=== PATIENT | male | born 1965 | race Caucasian/White ===

== ENCOUNTER 2018-10-18 23:04 | Emergency (ER) | payer BC ==
[~2018-10-18] VITALS: Ht 165.1 cm; Wt 65.9 kg
[~2018-10-18 23:04] MED LIST: ALEN70TA5 PO; FURO20TA3 PO; NADO40TA31 PO; RIFA550T4 PO; URSO250T10 PO
[2018-10-18 23:10] VITALS: Ht 165.1 cm; Wt 65.9 kg
--- NOTE | 2018-10-18 23:11 | ERD ---
ER Documentation Chief Complaint Chief Complaint Altered level consciousness HPI The patient is a 53-year-old male, presenting to the ER from home because of altered level consciousness for 20 minutes according to EMS. Accu-Chek was 177. 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 Past medical history: Cirrhosis, on liver transplant at [facility]. He has minimal bleeding in the nostril, according to EMS it is normal for him per family Past medical history: Cirrhosis on liver transplant at [facility] Past surgical history: Variceal bleeding banded ROS All systems reviewed and are negative except as per history of present illness. Medications Home Meds Reported Medications Ergocalciferol (Vitamin D2) (VITAMIN D2) 50,000 Unit Capsule, 83875 UNIT Q7D for QSUNDAY TAKE 1 CAPSULE (50,000 UNITS TOTAL) BY MOUTH EVERY SEVEN (7) DAYS 10/19/18 Hydroxyzine Hcl* (Atarax*) 25 Mg Tab, 25 MG PO QHS TAKE 1 TABLET BY MOUTH AT BEDTIME NEEDED 10/19/18 Amiloride Hcl* (Midamor*) 5 Mg Tab, 20 MG PO DAILY TAKE 4 TABLETS (20 MG TOTAL) BY MOUTH DAILY 10/19/18 Eszopiclone (Eszopiclone) 2 Mg Tablet, 2 MG PO QHS for 30 Days, #30 10/19/18 Rifampin* (Rifampin*) 150 Mg Capsule, 150 MG PO DAILY for 30 Days, #30 10/19/18 Pantoprazole* (Pantoprazole*) 40 Mg Tablet.dr, 40 MG PO DAILY for 30 Days, #30 10/19/18 Potassium Chloride* (K-Dur*) 20 Meq Tab.prt.sr, 20 MEQ PO DAILY for 30 Days, #30 10/19/18 Folic Acid* (Folic Acid*) 1 Mg Tablet, 1 MG PO DAILY for 30 Days, #30 10/19/18 Nadolol (Nadolol) 20 Mg Tablet, 20 MG PO DAILY, TAB 10/19/18 Furosemide* (Furosemide*) 40 Mg Tablet, 80 MG PO BID, TAB 10/19/18 Nadolol* (Corgard*) 40 Mg Tab, 40 MG PO BID, #30 TAB 07/04/18 Ursodiol* (Ursodiol*) 250 Mg Tablet, 500 MG PO BID, TAB 07/04/18 Alendronate Sodium* (Fosamax*) 70 Mg Tablet, 70 MG PO Q7D for QSUNDAY, #4 TAB 07/04/18 Rifaximin* (Xifaxan*) 550 Mg Tablet, 550 MG PO BID, TAB 07/04/18 Discontinued Reported Medications Furosemide* (Furosemide*) 20 Mg Tablet, 20 MG PO DAILY, #60 TAB 07/04/18 Allergies Allergies: Coded Allergies: No Known Allergy (Unverified , 07/09/15) PMhx/Soc History of Surgery: Yes (appendecitis) Anesthesia Reaction: No Hx Neurological Disorder: No Hx Respiratory Disorders: No Hx Cardiac Disorders: No Hx Psychiatric Problems: No Hx Miscellaneous Medical Probl: No Hx Alcohol Use: Yes Hx Substance Use: No Hx Tobacco Use: Yes Physical Exam Vitals Vital Signs Date Temp Pulse Resp B/P (MAP) Pulse Ox O2 O2 Flow FiO2 Time Delivery Rate 10/19/18 107 16 119/68 99 Room Air 01:00 (85) 10/19/18 110 24 122/73 99 Room Air 00:22 (89) 10/18/18 99.1 118 26 134/77 100 23:10 (96) Physical Exam Const: No acute distress. Head: Atraumatic. Eyes: Normal Conjunctiva. ENT: Normal External Ears, Nose and Mouth. Neck: Full range of motion. No meningismus. Resp: Clear to auscultation bilaterally. Cardio: Regular rate and rhythm. Abd: Soft, non distended, normal bowel sounds, non tender. Skin: No petechiae or rashes. Back: No midline or flank tenderness. Ext: No cyanosis, or edema. Neur: Awake. Limited exam Psych: Unable to perform due to his condition Result Diagram: 10/18/18230610/18/182306 Results 24 hrs Laboratory Tests Test 10/18/18 23:07 10/18/18 23:15 10/18/18 23:26 White Blood Count 5.5 10^3/ul Red Blood Count 2.38 10^6/ul Hemoglobin 8.1 g/dl Hematocrit 23.1 % Mean Corpuscular Volume 97.1 fl Mean Corpuscular Hemoglobin 34.0 pg Mean Corpuscular 35.1 g/dl Hemoglobin Concent Red Cell Distribution Width 13.6 % Platelet Count 93 10^3/UL Mean Platelet Volume 10.3 fl Immature Granulocytes % 0.700 % Neutrophils % 60.3 % Lymphocytes % 21.7 % Monocytes % 14.2 % Eosinophils % 2.6 % Basophils % 0.5 % Nucleated Red Blood Cells % 0.0 /100WBC Immature Granulocytes # 0.040 10^3/ul Neutrophils # 3.3 10^3/ul Lymphocytes # 1.2 10^3/ul Monocytes # 0.8 10^3/ul Eosinophils # 0.1 10^3/ul Basophils # 0.0 10^3/ul Nucleated Red Blood Cells # 0.0 10^3/ul Prothrombin Time 35.6 Sec Prothrombin Time Ratio 2.8 INR International Normalized Ratio 3.56 Activated Partial Thromboplast 55.9 Sec Time Sodium Level 132 mmol/L Potassium Level 3.0 mmol/L Chloride Level 94 mmol/L Carbon Dioxide Level 27 mmol/L Anion Gap 11 Blood Urea Nitrogen 13 mg/dl Creatinine 1.00 mg/dl Est Glomerular Filtrat Rate mL/min > 60 mL/min Glucose Level 193 mg/dl Calcium Level 7.7 mg/dl Total Bilirubin 5.3 mg/dl Direct Bilirubin 1.20 mg/dl Indirect Bilirubin 4.1 mg/dl Aspartate Amino Transf (AST/SGOT) 66 IU/L Alanine 22 IU/L Aminotransferase (ALT/SGPT) Alkaline Phosphatase 290 IU/L Ammonia 53 umol/l Troponin I < 0.012 ng/ml Total Protein 8.3 g/dl Albumin 3.1 g/dl Globulin 5.20 g/dl Albumin/Globulin Ratio 0.59 Ethyl Alcohol Level < 10.0 mg/dl POC Venous Lactate 3.0 mmol/L Bedside Glucose 224 mg/dL Current Medications Medications Dose Sig/Narinder Start Time Status Last (Trade) Ordered Route PRN Stop Time Admin Dose Reason Admin Sodium 1,980 ml BOLUS OVER 2 10/18/18 DC 10/18/18 Chloride HOURS STAT 23:16 23:27 (NS) IV* 10/18/18 23:19 Piperacillin 100 ml @ ONCE ONCE 10/18/18 DC 10/18/18 Sod/ 200 mls/hr IVPB 23:30 23:26 Tazobactam 10/18/18 23:59 Sod Ondansetron 4 mg ONCE STAT 10/18/18 DC 10/18/18 HCl (Zofran IV 23:22 23:35 Inj) 10/18/18 23:23 Procedures/MDM MEDICAL MAKING DECISION: The patient and family later arrived and wanted to take the patient to [facility] by himself and did not want to wait for the chest x-ray/C T/labs to be back. He left AGAINST MEDICAL ADVICE before the studies were available. I explained to them that the patient may have have intracranial bleeding, esophageal varices bleeding, upper gastrointestinal bleeding, hepatic encephalopathy and will need immediate treatment. They are aware that he may on the way to [facility] None of the abnormality of the labs were addressed because the patient left prior to the availability of the labs The patient signed out AGAINST MEDICAL ADVICE. Risks, benefits, alternatives were explained to the patient. Risks include but not limited to and p ermanent disability Disclaimer: Inadvertent spelling and grammatical errors are likely due to EHR/d ictation software use and do not reflect on the overall quality of patient care. Also, please note that the electronic time recorded on this note does not necessarily reflect the actual time of the patient encounter. Departure Diagnosis: Primary Impression: Altered level of consciousness Condition: Critical Comments The patient signed out AGAINST MEDICAL ADVICE. Risks, benefits, alternatives we re explained to the patient. Risks include but not limited to and permanent disability Disclaimer: Inadvertent spelling and grammatical errors are likely due to EHR/dictation software use and do not reflect on the overall quality of patient care. Also, please note that the electronic time recorded on this note does not necessarily reflect the actual time of the patient encounter. ILYA MELCHOR MD October 18, 2018 23:11
[2018-10-18] MEDS ORDERED: SODIUM CHLORIDE 0.9% 1L BAG IV* STA (23:16)
[2018-10-18] MEDS ORDERED: ONDANSETRON 4 MG INJ IV STA (23:22)
[2018-10-18] MEDS ORDERED: PIPER-TAZO 3.375 GM IV (PMX) 100 ML IVPB ONE (23:30)
[2018-10-19 01:00] VITALS: BP 119/68; PULSE 107; RESP 16
[2018-10-19] MEDS ORDERED: NADO20TA PO (02:22)
[2018-10-19] MEDS ORDERED: PANT40TA4 PO (02:22)
[2018-10-19] MEDS ORDERED: RIFA150C2 PO (02:22)
[2018-10-19] MEDS ORDERED: POTA20TA15 PO (02:22)
[2018-10-19] MEDS ORDERED: HYDR-842 PO (02:22)
[2018-10-19] MEDS ORDERED: ERGO500013 (02:22)
[2018-10-19] MEDS ORDERED: FOLI-49 PO (02:22)
[2018-10-19] MEDS ORDERED: AMI5 PO (02:22)
[2018-10-19] MEDS ORDERED: FURO40TA4 PO (02:22)
[2018-10-19] MEDS ORDERED: ESZO2TAB PO (02:22)
== END 2018-10-19 07:11 | disposition left against medical advice (07) ==
LOC: E/R 23:04
DX: R41.82 Altered mental status, unspecified (principal); R40.2132 Coma scale, eyes open, to sound, at arrival to emergency department; R40.2342 Coma scale, best motor response, flexion withdrawal, at arrival to emergency department; R40.2242 Coma scale, best verbal response, confused conversation, at arrival to emergency department
CPT/HCPCS: 36415; 70450; 71045; 80053; 80307; 82140; 82962; 83605; 84484; 85025; 85610; 85730; 86850; 86900; 86901; 87040; 96374; 96375; 99285; J2405; J2543; J7030